=== PATIENT | male | born 1980 | race Two or more races ===

== ENCOUNTER 2018-02-13 01:03 | Emergency (ER) | payer SELFPAY | END 2018-02-13 02:30 | disposition home or self-care (01) | LOC: ER 01:03 | DX: K61.1 Rectal abscess (principal); K62.89 Other specified diseases of anus and rectum | CPT/HCPCS: 99283 ==

== ENCOUNTER 2018-02-15 01:46 | Emergency (ER) | payer SELFPAY ==
[2018-02-15 02:41] LABS: ADD MAN DIFF? NO
[2018-02-15] MEDS: KETOROLAC 30 MG/ML INJ. IV (02:41)
[2018-02-15] MEDS: fentaNYL PF VIAL 100 MCG/2 ML VIAL IV (02:42)
[2018-02-15 02:45] LABS: BASO % 0 % (0-3); EOS # 0.1 x10^3/uL (0.0-0.7); EOS % 0 % (0-3); HEMATOCRIT 43.1 % (39.0-53.0); HEMOGLOBIN 15.4 g/dL (13.0-17.5); LYMPH # 2.4 x10^3/uL (1.0-4.8); LYMPH % 18 % (24-48); MEAN CORPUSCULAR HEMOGLOBIN 31 pg (25-35); MEAN CORPUSCULAR HGB CONC 36 g/dL (31-37); MEAN CORPUSCULAR VOLUME 87 fL (79-100); MONO # 1.2 x10^3/uL (0.0-1.1); MONO % 9 % (0-9); NEUT # 9.7 x10^3uL (1.8-7.7); NEUT % 73 % (31-73); PLATELET COUNT 391 x10^3/uL (140-400); RED BLOOD COUNT 4.95 x10^6/uL (4.30-5.70); WHITE BLOOD COUNT 13.4 x10^3/uL (4.0-11.0)
[2018-02-15 02:53] LABS: ANION GAP 12 (6-14); BLOOD UREA NITROGEN 19 mg/dL (8-26); BUN/CREATININE RATIO 21 (6-20); CALCIUM 9.4 mg/dL (8.5-10.1); CARBON DIOXIDE 26 mmol/L (21-32); CHLORIDE 101 mmol/L (98-107); CREATININE 0.9 mg/dL (0.7-1.3); GLUCOSE 122 mg/dL (70-99); SODIUM 139 mmol/L (136-145)
[2018-02-15 02:58] LABS: ALBUMIN 3.7 g/dL (3.4-5.0); ALBUMIN/GLOBULIN RATIO 0.8 (1.0-1.7); ALK PHOS 92 U/L (46-116); ALT (SGPT) 28 U/L (16-63); AST (SGOT) 12 U/L (15-37); TOTAL BILIRUBIN 0.5 mg/dL (0.2-1.0); TOTAL PROTEIN 8.5 g/dL (6.4-8.2)
[2018-02-15] MEDS ORDERED: CONTRAST GIVEN. MC (03:15)
[2018-02-15] MEDS: IOHEXOL 300 MG/ML 100ML VIAL. IV (03:27)
[2018-02-15] MEDS: LIDOCAINE 2% 20 ML VIAL. IJ (04:50)
== END 2018-02-15 05:48 | disposition home or self-care (01) ==
LOC: ER 01:46
DX: K61.0 Anal abscess (principal)
CPT/HCPCS: 36415; 46050; 74177; 80053; 85025; 96374; 96375; 99285-25; J1885; J3010; Q9967